=== PATIENT | female | born 1980 | race Caucasian/White ===

== ENCOUNTER 2017-07-27 00:12 | Inpatient (IN) | payer SELFPAY ==
--- NOTE | 2017-07-27 00:38 | PDOC ---
History of Present Illness - History of Present Illness Initial Comments: 07/27/17 01:53 Patient is a 37 year old female with a significant past medical history of Fibromyalgia, withdrawal seizures, who was brought by EMS to the ED with complaints of withdrawal. As per [facility] staff, patient was admitted for rehab but states she began to show signs of withdrawal, prompting them to send to the ED for further evaluation. Patient reports taking alcohol this morning as well as cocaine, but states she has not done any heroin. She reports not sleeping for x3 days. Denies chest pain, Sob. Denies nausea, vomiting. Denies contact with sick individuals, out of state travelling. Denies dysuria, hematuria, constipation, diarrhea. Denies any other symptoms. Allergies: unknown Social history: From [facility]. No smoking. Current alcohol use (4 pints per day ). Current Methadone use. Current Benzo use. Current cocaine use. Surgical history: None PMD: None <Nabil Snell - Last Filed: 07/27/17 01:53> <Briseyda Montemayor - Last Filed: 07/27/17 04:28> - General History Source: Patient Exam Limitations: No Limitations <Oralia De La Vega - Last Filed: 07/30/17 10:41> - General Stated Complaint: ALCOHOL WITHDRAWAL,4 WKS Time Seen by Provider: 07/27/17 00:37 Past History <Nabil Snell - Last Filed: 07/27/17 01:53> <Briseyda Montemayor - Last Filed: 07/27/17 04:28> <Oralia De La Vega - Last Filed: 07/30/17 10:41> - Past Medical History Allergies/Adverse Reactions: Allergies Allergy/AdvReac Type Severity Reaction Status Date / Time No Known Allergies Allergy Verified 07/27/17 05:46 Home Medications: Ambulatory Orders Amitriptyline HCl [Elavil -] 50 mg PO HS 07/28/17 Cyclobenzaprine HCl [Flexeril -] 10 mg PO BID 07/28/17 Fluoxetine HCl [Prozac -] 10 mg PO DAILY 07/28/17 Gabapentin [Neurontin] 600 mg PO QID 07/28/17 Hydroxyzine HCl 50 mg PO Q6H PRN 07/28/17 Quetiapine Fumarate [Seroquel -] 25 mg PO BID 07/28/17 Valacyclovir HCl [Valtrex] 500 mg PO BID 07/28/17 Zolpidem Tartrate [Ambien] 10 mg PO HS 07/28/17 Review of Systems - Review of Systems Able to Perform ROS?: Yes Comments:: 07/27/17 01:53 GENERAL/CONSTITUTIONAL: +Generalized body pain. No: fever, chills, weakness, loss of appetite. HEAD, EYES, EARS, NOSE AND THROAT: No: change in vision, ear pain, discharge, sore throat, throat swelling. CARDIOVASCULAR: No: chest pain, lightheadedness, palpitations, syncope RESPIRATORY: No: cough, shortness of breath, wheezing, hemoptysis, stridor. GASTROINTESTINAL: No: nausea, vomiting, abdominal cramping, diarrhea, rectal bleeding, constipation. GENITOURINARY: No: dysuria, hematuria, frequency, urgency, flank pain. MUSCULOSKELETAL: No: back pain, neck pain, joint pain, muscle swelling or pain SKIN: No: lesions, pallor, rash or easy bruising. NEUROLOGIC: No: headache, vertigo, paresthesias, weakness ENDOCRINE: No: unexplained weight gain or loss HEMATOLOGIC/LYMPHATIC: No: anemia, easy bleeding, swelling nodes <Nabil Snell - Last Filed: 07/27/17 01:53> *Physical Exam - Vital Signs Last Vital Signs Temp Pulse Resp BP Pulse Ox 96.6 F L 72 19 125/68 99 07/27/17 00:53 07/27/17 00:53 07/27/17 00:53 07/27/17 00:53 07/27/17 00:53 - Physical Exam Comments: 07/27/17 01:53 GENERAL: +Somnolent but arousable. The patient is in no acute distress. HEAD: Normal with no signs of trauma. EYES: PERRLA, EOMI, sclera anicteric, conjunctiva clear. ENT: Ears normal, nares patent, oropharynx clear without exudates. Moist mucous membranes. NECK: Normal range of motion, supple without lymphadenopathy, JVD, or masses. LUNGS: +Poor respiratory effort but clear. Breath sounds equal, clear to auscultation bilaterally. No wheezes, and no crackles. HEART:Regular rate and rhythm, normal S1 and S2 without murmur, rub or gallop. ABDOMEN: +Low abdomen distention. Soft, nontender, normoactive bowel sounds. No guarding, no rebound. EXTREMITIES: Normal range of motion, no edema. No clubbing or cyanosis. No erythema, or tenderness. NEUROLOGICAL: Cranial nerves II through XII grossly intact. Normal speech. No focal neurological deficits. MUSCULOSKELETAL: Back nontender to palpation, no CVA tenderness SKIN: +Slight left inner bicep bruising. +No external signs of trauma. Warm, Dry, normal turgor, no rashes or lesions noted. <Nabil Snell - Last Filed: 07/27/17 01:53> - Vital Signs Last Vital Signs Temp Pulse Resp BP Pulse Ox 96.6 F L 72 19 125/68 99 07/27/17 00:53 07/27/17 00:53 07/27/17 00:53 07/27/17 00:53 07/27/17 00:53 <Briseyda Montemayor - Last Filed: 07/27/17 04:28> ED Treatment Course - LABORATORY CBC & Chemistry Diagram: 07/27/17 01:52 07/27/17 01:52 - ADDITIONAL ORDERS Additional order review: Laboratory Results 07/27/17 07/27/17 01:52 01:52 Sodium 138 Potassium 3.8 Chloride 101 Carbon Dioxide 26 Anion Gap 11 BUN 11 Creatinine 0.5 L Creat Clearance w eGFR > 60 Random Glucose 84 Calcium 8.9 Total Bilirubin 0.2 AST 47 H ALT 34 Alkaline Phosphatase 68 Total Protein 7.1 Albumin 3.3 L Beta HCG, Quant 86177.2 Alcohol, Quantitative 110.38 H* 07/27/17 01:52 RBC 3.68 MCV 92.3 MCHC 33.6 RDW 14.4 MPV 7.9 Neutrophils % 61.9 Lymphocytes % 28.4 Monocytes % 7.4 Eosinophils % 1.5 Basophils % 0.8 <Briseyda Montemayor - Last Filed: 07/27/17 04:28> - LABORATORY CBC & Chemistry Diagram: 07/30/17 06:00 07/30/17 06:00 <Oralia De La Vega - Last Filed: 07/30/17 10:41> Medical Decision Making - Medical Decision Making 07/27/17 04:28 Pt was signed out to me. She is positive; polysubstance abuser. Pt is altered MS; likely secondary to substance abuse. Pt will be admitted to short stay obs; medicine team is aware. Pt will get sono in the AM <Briseyda Montemayor - Last Filed: 07/27/17 04:28> - Medical Decision Making 07/27/17 01:20 Ms Knowles presents to the ER from [facility] Per staff there, she is going through withdrawal, she was found to be and they can not accept patient Pt tells me that she was sleeping at [facility] because she has not slept in 4 days She admits to alcohol use, benzodizepine use (unsure which one she took today), cocaine She takes Methadone 150mg daily Pt reports that when she doesn't drink alcohol, she becomes tremulous Typically, she drinks 3-4 pints/day On examination: Pt is somnolent but arousable RRR, no tachycardia Lung are clear, poor respiratory effort Resp rate is 10 No abd tenderness Bruise noted left forearm Will: check labs check UA US Pt at this time does not appear to be agitated, withdrawing Pt on the contrary appears quite somnolent She will stay for observation in the ER Pt can not return to [facility] as they do not accept patients 07/27/17 01:29 Pt sent to [place] Received a call from [facility] stating patient could not be imaged because she is too somnolent She is requesting to send this patient back to the ER Labs to be drawn Pt is too somnolent at this time to discharge to home Pt signed out to Dr. Montemayor <Oralia De La Vega - Last Filed: 07/30/17 10:41> *DC/Admit/Observation/Transfer - Attestations Scribe Attestion: 07/27/17 01:53 Documentation prepared by Nabil Snell, acting as medical hospital sales for Oralia De La Vega MD. <Nabil Snell - Last Filed: 07/27/17 01:53> - Discharge Dispostion Decision to Admit order: Yes <Briseyda Montemayor - Last Filed: 07/27/17 04:28> - Discharge Dispostion Decision to Admit order: No <Oralia De La Vega - Last Filed: 07/30/17 10:41> Diagnosis at time of Disposition: Polysubstance abuse, test positive - Discharge Dispostion Condition at time of disposition: Stable
[2017-07-27 02:10] LABS: BASO % 0.8 % (0-2.0); EOS % 1.5 % (0-4.5); HEMATOCRIT 33.9 % (32.4-45.2); HEMOGLOBIN 11.4 GM/dL (10.7-15.3); LYMPH % 28.4 % (8-40); MCHC 33.6 g/dl (32.0-36.0); MEAN CELL VOLUME 92.3 fl (80-96); MEAN PLT VOLUME 7.9 fl (7.5-11.1); MONO % 7.4 % (3.8-10.2); NEUT % 61.9 % (42.8-82.8); PLATELET COUNT 268 K/MM3 (134-434); RBC 3.68 M/mm3 (3.60-5.2); RDW 14.4 % (11.6-15.6); WHITE BLOOD COUNT 9.4 K/mm3 (4.0-10.0)
[2017-07-27 02:35] LABS: ALBUMIN 3.3 g/dl (3.4-5.0); ANION GAP 11 (8-16); BILIRUBIN,TOTAL 0.2 mg/dL (0.2-1.0); BLOOD UREA NITROGEN 11 mg/dL (7-18); CALCIUM 8.9 mg/dL (8.5-10.1); CHLORIDE 101 mmol/L (98-107); CO2 26 mmol/L (21-32); CREATININE 0.5 mg/dL (0.55-1.02); GLUCOSE,RANDOM 84 mg/dL (74-106); POTASSIUM 3.8 mmol/L (3.5-5.1); SGOT/AST 47 U/L (15-37); SGPT/ALT 34 U/L (12-78); SODIUM 138 mmol/L (136-145); TOT PROT 7.1 g/dl (6.4-8.2)
[2017-07-27 02:51] LABS: ALK PHOS 68 U/L (45-117)
--- NOTE | 2017-07-27 11:15 | PDOC ---
*Physical Exam - Vital Signs Last Vital Signs Temp Pulse Resp BP Pulse Ox 96.6 F L 72 19 125/68 99 07/27/17 00:53 07/27/17 00:53 07/27/17 00:53 07/27/17 00:53 07/27/17 00:53 - Physical Exam General Appearance: Yes: Nourished Respiratory/Chest: positive: Lungs Clear, Normal Breath Sounds Cardiovascular: positive: S1, S2 (we'll), Tachycardia Gastrointestinal/Abdominal: positive: Normal Bowel Sounds, Flat, Soft Musculoskeletal: positive: Normal Inspection. negative: CVA Tenderness Extremity: positive: Normal Capillary Refill ( alcshe is a hises) Integumentary: positive: Normal Color, Dry, Warm Neurologic: positive: Fully Oriented, Alert, Normal Mood/Affect, Other ( tremulous) ED Treatment Course - LABORATORY CBC & Chemistry Diagram: 07/27/17 01:52 07/27/17 01:52 - ADDITIONAL ORDERS Additional order review: Laboratory Results 07/27/17 07/27/17 01:52 01:52 Sodium 138 Potassium 3.8 Chloride 101 Carbon Dioxide 26 Anion Gap 11 BUN 11 Creatinine 0.5 L Creat Clearance w eGFR > 60 Random Glucose 84 Calcium 8.9 Total Bilirubin 0.2 AST 47 H ALT 34 Alkaline Phosphatase 68 Total Protein 7.1 Albumin 3.3 L Beta HCG, Quant 47979.2 Alcohol, Quantitative 110.38 H* 07/27/17 01:52 RBC 3.68 MCV 92.3 MCHC 33.6 RDW 14.4 MPV 7.9 Neutrophils % 61.9 Lymphocytes % 28.4 Monocytes % 7.4 Eosinophils % 1.5 Basophils % 0.8 Medical Decision Making - Medical Decision Making 07/27/17 11:07 37 yo F with h/o polysubstance abuse, etoh abuse, here from [facility] initially requesting detox. pt is currently 9 weeks , unable to go to [facility] due to . pt states she has ho etoh withdrawal seizures. concerned she is withdrawing from both etoh and benzoiazepines. pt was admitted to ED observation overnight. awaiting evaluation. on my exam pt is awake. alert, tearful. lungs clear. heart tachycardic. skin warm and dry. pt is tearful, tremulous. due to concerns for etoh withdrawal, h/o severe withdrawal with seizures, will be admitted to medicine. d/w dr Heaton, requested consult to ob placed with Dr. Parada who will see pt . *DC/Admit/Observation/Transfer Diagnosis at time of Disposition: Polysubstance abuse, test positive - Discharge Dispostion Condition at time of disposition: Stable Decision to Admit order: Yes - Referrals - Patient Instructions - Post Discharge Activity
[2017-07-27 12:12] LABS: URINE APPEARANCE CLOUDY; URINE BILIRUBIN NEGATIVE (<2.0 mg/dL); URINE BLOOD 2+ (NEGATIVE); URINE COLOR AMBER; URINE GLUCOSE (UA) NEGATIVE (NEGATIVE); URINE KETONE TRACE (NEGATIVE); URINE NITRITE NEGATIVE (NEGATIVE); URINE UROBILINOGEN 4.0 E.U/dl mg/dL (0.2-1.0)
[2017-07-27 12:13] LABS: URINE LEUK ESTERASE 3+ (NEGATIVE); URINE PROTEIN 2+ (NEGATIVE)
[2017-07-27 12:21] LABS: EPI CELLS MODERATE /HPF (FEW); URINE BACTERIA RARE /hpf (NONE SEEN); URINE MUCUS FEW
--- NOTE | 2017-07-27 12:25 | HP ---
CHIEF COMPLAINT: Alcohol withdrawal in PCP: Dr Ortiz ([facility] in the [place]) Dr Bonilla ([facility] in the [place]) Meth[facility]one Clinic[facility] in the [place] HISTORY OF PRESENT ILLNESS: Pt is a 37 year old A (3 miscarriages, 1 , 1 term and alive-7year old F) homeless F with PMHx of polysubstance abuse(ETOH, tobacco, cocaine and heroine), fibromyalgias, withdrawal seizures and anxiety presenting, from [facility] with 9 weeks and requiring alcohol detox. Pt checked herself into detox for alcohol and cocaine (last use yesterday, up to about 11pm-midnight) because she felt she is doing damage to herself and did not want to keep harming herself with the iv cocaine injection. Pt was unaware she was , due to irregular menstrual periods, and was informed of the in [facility], requiring transfer here([facility] does not do detox in ). Pt has gone for detox in the past, said she was clean for 9 months and then relapsed. She has had severe withdrawal seizures in the past and can feel the withdrawal coming on now with tremors, dry heave, headache and anxiety. She goes to a Methadone clinic in the [place], so uses heroine sparingly, but had used iv cocaine, cigarettes and 3-4 pints of vodka a day, yesterday prior to presentation. Pt intends to keep this , and was inquiring about DNA tests. She is worried about not getting the detox due to . ER course was notable for: (1) HCG- [id number], US- (9 weeks gestation) (2) Ativan 1mg stat (3) Recent Travel: PAST MEDICAL HISTORY: polysubstance abuse(ETOH, tobacco, cocaine and heroine), fibromyalgias, withdrawal seizures and anxiety PAST SURGICAL HISTORY: Social History: Homeless, lives with friends, has a boyfriend, does not work Smokin/2 pack per day x 20years Alcohol:3-4 pints vodka per day Drugs: Cocaine-iv, heroine occ, on 150mg methadone, buys klonipin from street Family History: Mother , had MS Allergies No Known Allergies Allergy (Verified 07/27/17 05:46) HOME MEDICATIONS: Home Medications Medication Instructions Recorded Unobtainable 07/27/17 REVIEW OF SYSTEMS CONSTITUTIONAL: Absent: fever, chills, diaphoresis, generalized weakness, malaise, loss of appetite, weight change HEENT: Absent: rhinorrhea, nasal congestion, throat pain, throat swelling, difficulty swallowing, mouth swelling, ear pain, eye pain, visual changes CARDIOVASCULAR: Absent: chest pain, syncope, palpitations, irregular heart rate, lightheadedness , peripheral edema RESPIRATORY: Absent: cough, shortness of breath, dyspnea with exertion, orthopnea, wheezing, stridor, hemoptysis GASTROINTESTINAL: Absent: abdominal pain, abdominal distension, nausea, vomiting, diarrhea, constipation, melena, hematochezia GENITOURINARY: Absent: dysuria, frequency, urgency, hesitancy, hematuria, flank pain, genital pain MUSCULOSKELETAL: Absent: myalgia, arthralgia, joint swelling, back pain, neck pain SKIN: Absent: rash, itching, pallor HEMATOLOGIC/IMMUNOLOGIC: Absent: easy bleeding, easy bruising, lymphadenopathy, frequent infections ENDOCRINE: Absent: unexplained weight gain, unexplained weight loss, heat intolerance, cold intolerance NEUROLOGIC: Absent: headache, focal weakness or paresthesias, dizziness, unsteady gait, seizure, mental status changes, bladder or bowel incontinence PSYCHIATRIC: Absent: anxiety, depression, suicidal or homicidal ideation, hallucinations. PHYSICAL EXAMINATION Vital Signs - 24 hr 07/27/17 07/27/17 00:53 11:25 Temperature 96.6 F L Pulse Rate 72 Pulse Rate [ 77 Apical] Respiratory 19 18 Rate Blood Pressure 125/68 Blood Pressure 138/73 [Right Arm] O2 Sat by Pulse 99 98 Oximetry (%) GENERAL: Awake, alert, and fully oriented, anxious, and teary. HEAD: Normal with no signs of trauma. EYES: Pupils equal, round and reactive to light, extraocular movements intact, sclera anicteric, EARS, NOSE, THROAT: oropharynx clear without exudates. Moist mucous membranes. Tooth #10 broken LUNGS: Breath sounds equal, clear to auscultation bilaterally. No wheezes, and no crackles HEART: Regular rate and rhythm, normal S1 and S2 without murmur, rub or gallop. ABDOMEN: Suprapubic fullness. Soft, nontender, not distended, normoactive bowel sounds, no guarding, no rebound MUSCULOSKELETAL: Normal range of motion at all joints. No bony deformities or tenderness. No CVA tenderness. R knee healing bruise UPPER EXTREMITIES: 2+ pulses, warm, well-perfused. LOWER EXTREMITIES: 2+ pulses, warm, well-perfused. No calf tenderness. No peripheral edema. Onychomycosis bilaterally NEUROLOGICAL: AAOx3. Tremors of outstretched hands. Normal speech. PSYCHIATRIC: Anxious SKIN: Diaphoresis of forehead. Laboratory Results - last 24 hr 07/27/17 07/27/17 07/27/17 01:52 01:52 01:52 WBC 9.4 RBC 3.68 Hgb 11.4 Hct 33.9 MCV 92.3 MCH 31.0 MCHC 33.6 RDW 14.4 Plt Count 268 MPV 7.9 Neutrophils % 61.9 Lymphocytes % 28.4 Monocytes % 7.4 Eosinophils % 1.5 Basophils % 0.8 Nucleated RBC % 0 Sodium 138 Potassium 3.8 Chloride 101 Carbon Dioxide 26 Anion Gap 11 BUN 11 Creatinine 0.5 L Creat Clearance w eGFR > 60 Random Glucose 84 Calcium 8.9 Total Bilirubin 0.2 AST 47 H ALT 34 Alkaline Phosphatase 68 Total Protein 7.1 Albumin 3.3 L Beta HCG, Quant 51649.2 Alcohol, Quantitative 110.38 H* ASSESSMENT/PLAN: Pt is a 37 year old A homeless F with PMHx of polysubstance abuse(ETOH, tobacco, cocaine and heroine), fibromyalgias, withdrawal seizures and anxiety presenting, from [facility] with 9 weeks and requiring alcohol detox. # ETOH withdrawal CIWA-15 Has had DTs in past Admit Medsurg Consult- detox- Dr Sheppard Thiamine Banana bag vits Mg Phosh # Obgyn consult monitoring vits #Heroine/ Cocaine abuse On methadone program Will try to contact the clinic #fibromayalgias Will med rec her #anxiety Will be on benzos for ETOH withdrawal pending med recs #FEN Banana bag/Oral ingestion Monitor lytes and replete as needed Regular diet #Heparin SQ heparin 5000u tids #Dispo: Med Surg Obgyn consult Visit type - Emergency Visit Emergency Visit: Yes ED Registration Date: 07/27/17 Care time: The patient presented to the Emergency Department on the above date and was hospitalized for further evaluation of their emergent condition. - New Patient This patient is new to me today: Yes Date on this admission: 07/27/17 - Critical Care Critical Care patient: No Hospitalist Screening - Colonoscopy Questionnaire Colonoscopy Questionnaire: Colonoscopy Questionnaire - Patient: 50 - 75 years old and never had a screening colonoscopy: No History of colon or rectal polyps, or CA: Unknown History of IBD, Crohn's disease or UC: Unknown History of abdominal radiation therapy as a child: Unknown - Relative: 1 with colon or rectal CA, or polyps at age 60 or younger: Unknown Colon or rectal CA diagnosed at age 45 or younger: Unknown Multiple relatives with colon or rectal CA: Unknown - Outcome: Screening Result: Negative Screen
[2017-07-27 12:27] LABS: OPIATES, URI NEGATIVE ng/ml (CUTOFF=300); PHENCYCLIDINE,URINE NEGATIVE ng/ml (CUTOFF=25); URINE AMPHETAMINES NEGATIVE ng/ml (CUTOFF=500); URINE BARBITURATES NEGATIVE ng/ml (CUTOFF=200)
[2017-07-27 12:28] LABS: COCAINE, UR POSITIVE ng/ml (CUTOFF=300); METHADONE, UR POSITIVE ng/ml (CUTOFF=300); URINE BENZODIAZEPINES POSITIVE ng/ml (CUTOFF=200)
[2017-07-27] MEDS ORDERED: FOLIC ACID INJECTION - 1 MG, THIAMINE HCL 100 MG, MULTIVIT INJECTION ADULT 10 ML in SOD... IVPB ONE (12:33)
[2017-07-27] MEDS ORDERED: LORazepam 2 MG/ML SDV VIAL ONE (13:03)
[2017-07-27 13:14] LABS: MAGNESIUM 2.1 mg/dL (1.8-2.4); PHOSPHOROUS 4.2 mg/dL (2.5-4.9)
[2017-07-27] MEDS ORDERED: chlordiazePOXIDE HCL 25 MG CAPSULE PO SCH (14:44)
--- NOTE | 2017-07-27 14:47 | PN ---
Teaching Attending Note Name of Resident: Elke Davis ATTENDING PHYSICIAN STATEMENT I saw and evaluated the patient. I reviewed the resident's note and discussed the case with the resident. I agree with the resident's findings and plan as documented. SUBJECTIVE:37yo F wt PMH continuous polysubstance abuse with hx of withdrawal seizures, fibromyalgia and anxiety was sent to the ER when she arrived there for ETOH and cocaine detox and found to have + test. currently pt is c/ o anxiety, nausea and dry heaving. also has a MAKI. denies CP, SOB, fever, chills , V/C/D, auditory/visual hallucinations been getting methadone for heroin use from the clinic in the [place] 150mg. took her dose herself today as she was given her dose. OBJECTIVE: Last Vital Signs Temp Pulse Resp BP Pulse Ox 97.9 F 68 18 119/66 99 07/27/17 14:26 07/27/17 14:26 07/27/17 14:26 07/27/17 14:26 07/27/17 13:16 General lethargic Lungs CTA B/L no wheezing/rales/rhonchi CV S1 S2 RRR no murmur/rub/gallop ABdomen soft NT/ND Extremities +tremors ASSESSMENT AND PLAN: 37yo F [facility] continuous polysubstance abuse with hx of withdrawal seizures, fibromyalgia and anxiety presented to the ER after injecting cocaine adn desire to not use anymore 1. Acute ETOH withdrawal- CIWA 10 will start librium protocol. banana bag. counseled on risks assoc with current drinking which is increased during . start thiamine/folate/MVI. is interested in inpatient rehab. detox specialist consulted 2. +9 weeks liver intrauterine gestation-confirmed on TVUS. desires to keep the fetus. will start vitamins. OB evaluation for initiation of management. ensure all medications are safe in 3. UTI- start Ceftriaxone. will treat although asymptomatic in setting of . f/u Cx 4. continuous polysusbtance abuse- counselled on risks assoc with continued use to her and the baby. detox specialist consulted. will wait on his recommendation on methadone dosing. will likely require to be detoxed. states she takes 150mg which needs to be confirmed. Nicotine patch offered 5. Fibromyalgia- symptomatic treatment 6. DVT ppx- hep sq
[2017-07-27] MEDS ORDERED: DEXTROSE 5%-WATER 100 ML IVPB ONE (15:35)
[2017-07-27] MEDS: CEFTRIAXONE 2 GM in DEXTROSE 5%-WATER 100 ML IVPB SCH (15:55)
[2017-07-27] MEDS: chlordiazePOXIDE HCL 25 MG CAPSULE PO SCH ×2 (15:56→22:02)
[2017-07-27] MEDS: SODIUM CHLORIDE 1,000 ML IV SCH (15:56)
[2017-07-27] MEDS: HEPARIN NA (PORCINE) 5,000 UNITS/ML 1ML VIAL SQ SCH ×2 (15:57→22:02)
[2017-07-27] MEDS: NICOTINE 21 MG/24 HOURS TOPICAL PATCH TD SCH (15:58)
[2017-07-27] MEDS: METOCLOPRAMIDE HCL INJECTION 10 MG/2 ML VIAL IVPUSH PRN (17:11)
--- NOTE | 2017-07-27 17:40 | CONSULT ---
Consult Detox [facility] Reason for Current Admission/Consult: 37 y/o female pt with h/o chronic alcoholism who presented to ED in [facility]. requiring admission for alcohol detox with [facility]. - History History of Present Illness: Female pt with h/o polysubstance use . Presently on Julio C Jordan ,OTP [place] [facility] receiving 150mg/d . Pt has h/o chronic alcoholism drinking about 4 pt.s of vodka /day and using cocaine approx. $60./day. Pt presented to [facility] for detox and was transfered to [facility]. Pt found to be , in withdrawal and with UTI. PMHX: h/o fibromyalgaia , withdrawal sz's , anxiety , depression , bipolar d/o - History Source History Provided By: Patient Limitations to Obtaining History: No Limitations - Alcohol/Substance Use Hx Alcohol Use: Yes (vodka 4 pt.s /d ) Hx Substance Use: Yes (cocaine $60./d ) Hx Substance Use Treatment: Yes (benzodiazepines ) - Current Drug/Alcohol Use Alcohol Route: Oral Frequency: Daily Amount used: vodka 4 pt.s /d Age of first use: 12 Date of Last Use: 07/26/17 Cocaine Route: Injection Frequency: Daily Amount used: $60./d Age of first use: 18 Date of Last Use: 07/26/17 - Past Medical History [employer]WORK EXPERT: Yes: Seizure (alcohol withdrawal sz's - last 11 months ago . ) Renal/: Yes: UTI Reproductive: Yes: Other (IUP ) ...: Yes Psych: Yes: Addictions (opioid dep., chronic alcoholism, benzo dep., nicotine dep. ), Anxiety, Bipolar, Depression Rheumatology: Yes: Fibromyalgia - Past Surgical History Past Surgical History: Yes: None - Significant Medical Findings: Vital Signs Temperature 98.4 F 07/27/17 17:36 Pulse Rate 72 07/27/17 17:36 Respiratory Rate 18 07/27/17 17:36 Blood Pressure 133/66 07/27/17 17:36 O2 Sat by Pulse Oximetry (%) 99 07/27/17 17:30 Laboratory Tests 07/27/17 07/27/17 07/27/17 01:52 01:52 01:52 WBC 9.4 RBC 3.68 Hgb 11.4 Hct 33.9 MCV 92.3 MCH 31.0 MCHC 33.6 RDW 14.4 Plt Count 268 MPV 7.9 Neutrophils % 61.9 Lymphocytes % 28.4 Monocytes % 7.4 Eosinophils % 1.5 Basophils % 0.8 Nucleated RBC % 0 Sodium 138 Potassium 3.8 Chloride 101 Carbon Dioxide 26 Anion Gap 11 BUN 11 Creatinine 0.5 L Creat Clearance w eGFR > 60 Random Glucose 84 Calcium 8.9 Phosphorus 4.2 Magnesium 2.1 Total Bilirubin 0.2 AST 47 H ALT 34 Alkaline Phosphatase 68 Total Protein 7.1 Albumin 3.3 L Beta HCG, Quant 54306.2 Urine Color Urine Appearance Urine pH Ur Specific [place] Urine Protein Urine Glucose (UA) Urine Ketones Urine Blood Urine Nitrite Urine Bilirubin Urine Urobilinogen Ur Leukocyte Esterase Urine WBC (Auto) Urine RBC (Auto) Ur Epithelial Cells Urine Bacteria Urine Mucus Opiates Screen Methadone Screen Barbiturate Screen Phencyclidine Screen Ur Amphetamines Screen MDMA (Ecstasy) Screen Benzodiazepines Screen Cocaine Screen U Marijuana (THC) Screen Alcohol, Quantitative 110.38 H* 07/27/17 07/27/17 07:21 12:00 WBC RBC Hgb Hct MCV MCH MCHC RDW Plt Count MPV Neutrophils % Lymphocytes % Monocytes % Eosinophils % Basophils % Nucleated RBC % Sodium Potassium Chloride Carbon Dioxide Anion Gap BUN Creatinine Creat Clearance w eGFR Random Glucose Calcium Phosphorus Magnesium Total Bilirubin AST ALT Alkaline Phosphatase Total Protein Albumin Beta HCG, Quant Urine Color Allison Urine Appearance Cloudy Urine pH 6.0 Ur Specific [place] 1.020 Urine Protein 2+ H Urine Glucose (UA) Negative Urine Ketones Trace H Urine Blood 2+ H Urine Nitrite Negative Urine Bilirubin Negative Urine Urobilinogen 4.0 e.u/dl H Ur Leukocyte Esterase 3+ H Urine WBC (Auto) 287 Urine RBC (Auto) 14 Ur Epithelial Cells Moderate Urine Bacteria Rare Urine Mucus Few Opiates Screen Negative Methadone Screen Positive Barbiturate Screen Negative Phencyclidine Screen Negative Ur Amphetamines Screen Negative MDMA (Ecstasy) Screen Negative Benzodiazepines Screen Positive Cocaine Screen Positive U Marijuana (THC) Screen Negative Alcohol, Quantitative 37 y/o f. pt. AOX3 , ambulating to bed appearing tired with running IV skin moist miosis no nystagmus + tremors no hallucinations CIWA Score - CIWA Score Nausea/Vomitin Muscle Tremors: 2 Anxiety: 2 Agitation: 1-Slight > Activity Paroxysmal Sweats: 1-Minimal Palms Moist Orientation: 0-Oriented Tacttile Disturbances: 1-Very Mild Itch/Numbness Auditory Disturbances: 0-None Visual Disturbances: 0-None Headache: 2-Mild CIWA-Ar Total Score: 11 Assessment Plan - Diagnosis (1) test positive Status: Acute (2) Polysubstance abuse Status: Chronic (3) Chronic alcoholism Status: Chronic (4) Methadone maintenance therapy patient Status: Chronic (5) Cocaine dependence Status: Chronic Qualifiers: Substance use status: uncomplicated Qualified Code(s): F14.20 - Cocaine dependence, uncomplicated (6) Benzodiazepine abuse Status: Acute (7) Nicotine dependence Status: Chronic Qualifiers: Nicotine product type: cigarettes Substance use status: uncomplicated Qualified Code(s): F17.210 - Nicotine dependence, cigarettes, uncomplicated - Plan Plan: Pt strongly encouraged to attend in Pt /rehab / long-term treatment program to address polysubstance use . - Medication Detox Regimen/Protocol: Librium (cont inue present alcohol detox with librium protocol. )
[2017-07-27 17:44] VITALS: BMI 28.0
[2017-07-27] MEDS: chlordiazePOXIDE HCL 25 MG CAPSULE PO PRN (19:44)
--- NOTE | 2017-07-27 21:40 | CON.OBG ---
Consult Consult Specialty:: OB / GAS OPERATIONS SUPERINTENDENT Reason for Consultation:: Positive - History of Present Illness History of Present Illness: 37 yo Para 1 with h/o irregular menses, LMP unknown, presents to ER for detoxification. She was found to have a 9 weeks gestation by ultrasound. is desired. She admits to polysubstance abuse; she's a heavy alcohol drinker and has been on methadone. She states that she was on methadone with her first . 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 ) Renal/: Yes: UTI ...LMP: 05/03/17 ...: Yes ...Para: 1 Psych: Yes: Addictions (opioid dep., chronic alcoholism, benzo dep., nicotine dep. ), Anxiety, Bipolar, Depression Rheumatology: Yes: Fibromyalgia - Past Surgical History Past Surgical History: Yes: None - Alcohol/Substance Use Hx Alcohol Use: Yes (vodka 4 pt.s /d ) - Smoking History Smoking history: Current every day smoker Have you smoked in the past 12 months: Yes Aproximately how many cigarettes per day: 10 - Social History Usual Living Arrangement: Other (Homeless) History of Recent Travel: No Home Medications - Allergies Allergies/Adverse Reactions: Allergies Allergy/AdvReac Type Severity Reaction Status Date / Time No Known Allergies Allergy Verified 07/27/17 05:46 - Home Medications Home Medications: Ambulatory Orders Unobtainable 07/27/17 Family Disease History - Family Disease History Family History: Unremarkable Review of Systems - Review of Systems Constitutional: reports: Weakness Eyes: reports: No Symptoms HENT: reports: No Symptoms Neck: reports: No Symptoms Cardiovascular: reports: No Symptoms Respiratory: reports: No Symptoms Gastrointestinal: reports: No Symptoms Genitourinary: reports: No Symptoms Breasts: reports: No Symptoms Reported Integumentary: reports: No Symptoms Endocrine: reports: No Symptoms Hematology/Lymphatic: reports: No Symptoms Psychiatric: reports: Anxiety, Depression Pain Intensity: 0 Physical Exam-GAS OPERATIONS SUPERINTENDENT Vital Signs: Vital Signs Temperature 98.5 F 07/27/17 18:57 Pulse Rate 51 L 07/27/17 18:57 Respiratory Rate 18 07/27/17 18:57 Blood Pressure 126/78 07/27/17 18:57 O2 Sat by Pulse Oximetry (%) 99 07/27/17 17:30 Constitutional: Yes: Poor Hygeine HENT: Yes: Atraumatic Neck: Yes: Supple Cardiovascular: Yes: Regular Rate and Rhythm Respiratory: Yes: Regular Gastrointestinal: Yes: Normal Bowel Sounds External Genitalia: Yes: Normal Vaginal Exam: Yes: Normal Cervix: Yes: Normal Uterus: Yes: Freely Moveable Breast(s): Yes: WNL Musculoskeletal: Yes: WNL Extremities: Yes: WNL Integumentary: Yes: WNL Neurological: Yes: Alert, Oriented ...Motor Strength: WNL Psychiatric: Yes: Alert, Oriented Labs: CBC, BMP 07/27/17 01:52 07/27/17 01:52 Assessment/Plan Early gestation Depression Fibromyalgia Substance abuse Continue vitamins Patient may continue her detoxification and be followed for care as outpatient.
[2017-07-28] MEDS: chlordiazePOXIDE HCL 25 MG CAPSULE PO SCH ×4 (05:26→22:51)
[2017-07-28] MEDS: METOCLOPRAMIDE HCL INJECTION 10 MG/2 ML VIAL IVPUSH PRN ×2 (05:51→18:29)
[2017-07-28] MEDS: HEPARIN NA (PORCINE) 5,000 UNITS/ML 1ML VIAL SQ SCH ×3 (05:52→21:36)
[2017-07-28] MEDS ORDERED: METHADONE HCL 10 MG TABLET PO ONE (08:07)
--- NOTE | 2017-07-28 08:23 | PN ---
Physical Exam: SUBJECTIVE: Patient seen and examined. Startes treated for UTI and librium taper. No vomiting overnight. Tremors are improved. OBJECTIVE: Vital Signs Period Temp Pulse Resp BP Sys/Valdez Pulse Ox Last 24 Hr 97.9 F-98.7 F 51-77 18-20 119-159/66-100 98-99 Vital Signs Temp 98.2 F 07/28/17 15:03 Pulse 58 L 07/28/17 15:03 Resp 17 07/28/17 15:03 BP 111/63 07/28/17 15:03 Pulse Ox 100 07/28/17 09:00 Intake & Output 07/27/17 07/28/17 07/28/17 23:59 11:59 23:59 Intake Total 1200 900 720 Balance 1200 900 720 Weight 71.894 kg Intake: IV 600 500 Normal Saline - 1,000 ml 600 500 @ 100 mls/hr IV ASDIR PARISA Rx#:[id number] Oral 600 400 720 Other: Voiding Method Toilet Toilet Toilet # Unmeasured Voids Void 1 Bowel Movement No No No Height 1.6 m Body Mass Index (BMI) 28.0 Weight Measurement Method Built in [facility] GENERAL: The patient is awake, alert, and fully oriented, in no acute distress, no obvious diaphoresis. LUNGS: Breath sounds equal, clear to auscultation bilaterally HEART: Regular rate and rhythm, S1, S2 without murmur ABDOMEN: Soft, mildly tender suprapubic region,full suprapubic area, normoactive bowel sounds EXTREMITIES: 2+ pulses, warm, well-perfused, no edema. NEUROLOGICAL: AAO x3. Normal speech, gait not observed. CIWA score 10 CBC, BMP 07/28/17 08:25 07/28/17 08:25 Laboratory Results - last 24 hr 07/27/17 07/27/17 07/27/17 01:52 07:21 12:00 Sodium 138 Potassium 3.8 Chloride 101 Carbon Dioxide 26 Anion Gap 11 BUN 11 Creatinine 0.5 L Creat Clearance w eGFR > 60 Random Glucose 84 Calcium 8.9 Phosphorus 4.2 Magnesium 2.1 Total Bilirubin 0.2 AST 47 H ALT 34 Alkaline Phosphatase 68 Total Protein 7.1 Albumin 3.3 L Beta HCG, Quant 58696.2 Urine Color Allison Urine Appearance Cloudy Urine pH 6.0 Ur Specific [place] 1.020 Urine Protein 2+ H Urine Glucose (UA) Negative Urine Ketones Trace H Urine Blood 2+ H Urine Nitrite Negative Urine Bilirubin Negative Urine Urobilinogen 4.0 e.u/dl H Ur Leukocyte Esterase 3+ H Urine WBC (Auto) 287 Urine RBC (Auto) 14 Ur Epithelial Cells Moderate Urine Bacteria Rare Urine Mucus Few Opiates Screen Negative Methadone Screen Positive Barbiturate Screen Negative Phencyclidine Screen Negative Ur Amphetamines Screen Negative MDMA (Ecstasy) Screen Negative Benzodiazepines Screen Positive Cocaine Screen Positive U Marijuana (THC) Screen Negative Active Medications Generic Name Dose Route Start Last Admin Trade Name Freq PRN Reason Stop Dose Admin Chlordiazepoxide HCl 25 mg 07/28/17 17:00 Librium - PO 07/29/17 11:01 [id number] PARISA Chlordiazepoxide HCl 15 mg 07/29/17 17:00 Librium - PO 07/30/17 11:01 [id number] PARISA Chlordiazepoxide HCl 25 mg 07/27/17 14:44 07/27/17 19:44 Librium - PO 07/30/17 14:43 25 mg Q4H PRN Administration WITHDRAWAL(CONT SUBST) Chlordiazepoxide HCl 50 mg 07/27/17 15:30 07/28/17 05:26 Librium - PO 07/28/17 11:01 50 mg [id number] PARISA Administration Heparin Sodium (Porcine) 5,000 unit 07/27/17 14:00 07/28/17 05:52 Heparin - SQ 5,000 unit TID PARISA Administration Ceftriaxone Sodium 2 gm/ 100 mls @ 200 mls/hr 07/27/17 14:15 07/27/17 15:55 Dextrose IVPB 200 mls/hr DAILY PARISA Administration Protocol Sodium Chloride 1,000 mls @ 100 mls/hr 07/27/17 15:30 07/27/17 15:56 Normal Saline - IV Not Given ASDIR [facility] Methadone HCl 150 mg 07/28/17 08:07 Dolophine - PO 07/28/17 08:08 ONCE ONE Metoclopramide HCl 10 mg 07/27/17 15:21 07/28/17 05:51 Reglan Injection - IVPUSH 10 mg Q6H PRN Administration NAUSEA AND/OR VOMITING Nicotine 21 mg 07/27/17 15:15 07/27/17 15:58 Nicoderm Patch - TD 21 mg DAILY [facility] Administration Multivit/Folic Acid/Iron 1 tab 07/28/17 10:00 Vitamins (Sjr) - PO DAILY [facility] Thiamine HCl 100 mg 07/28/17 10:00 Vitamin B1 - PO DAILY [facility] Ambulatory Orders Amitriptyline HCl [Elavil -] 50 mg PO HS 07/28/17 Cyclobenzaprine HCl [Flexeril -] 10 mg PO BID 07/28/17 Fluoxetine HCl [Prozac -] 10 mg PO DAILY 07/28/17 Gabapentin [Neurontin] 600 mg PO QID 07/28/17 Hydroxyzine HCl 50 mg PO Q6H PRN 07/28/17 Quetiapine Fumarate [Seroquel -] 25 mg PO BID 07/28/17 Valacyclovir HCl [Valtrex] 500 mg PO BID 07/28/17 Zolpidem Tartrate [Ambien] 10 mg PO HS 07/28/17 Current Medications Acetaminophen (Tylenol -) 650 mg PO Q4H PRN PRN Reason: PAIN LEVEL 1-5 Last Admin: 07/28/17 11:41 Dose: 650 mg Chlordiazepoxide HCl (Librium -) 15 mg PO [id number] [facility] Stop: 07/30/17 11:01 Chlordiazepoxide HCl (Librium -) 25 mg PO Q4H PRN PRN Reason: WITHDRAWAL(CONT SUBST) Stop: 07/30/17 14:43 Last Admin: 07/28/17 13:50 Dose: 25 mg Chlordiazepoxide HCl (Librium -) 50 mg PO [id number] [facility] Stop: 07/29/17 11:01 Heparin Sodium (Porcine) (Heparin -) 5,000 unit SQ TID [facility] Last Admin: 07/28/17 13:51 Dose: 5,000 unit Ceftriaxone Sodium 2 gm/ (Dextrose) 100 mls @ 200 mls/hr IVPB DAILY [facility]; Protocol Last Admin: 07/28/17 10:08 Dose: 200 mls/hr Sodium Chloride (Normal Saline -) 1,000 mls @ 100 mls/hr IV ASDIR [facility] Last Admin: 07/28/17 13:49 Dose: 100 mls/hr Metoclopramide HCl (Reglan Injection -) 10 mg IVPUSH Q6H PRN PRN Reason: NAUSEA AND/OR VOMITING Last Admin: 07/28/17 05:51 Dose: 10 mg Nicotine (Nicoderm Patch -) 21 mg TD DAILY [facility] Last Admin: 07/28/17 10:08 Dose: 21 mg Multivit/Folic Acid/Iron ( Vitamins (Sjr) -) 1 tab PO DAILY [facility] Last Admin: 07/28/17 10:08 Dose: 1 tab Thiamine HCl (Vitamin B1 -) 100 mg PO DAILY [facility] Last Admin: 07/28/17 10:09 Dose: 100 mg ASSESSMENT/PLAN: Pt is a 37 year old A homeless F with PMHx of polysubstance abuse(ETOH, tobacco, cocaine and heroine), fibromyalgias, withdrawal seizures and anxiety presenting, from [facility] with 9 weeks and requiring alcohol detox. # ETOH withdrawal CIWA-10 Has had DTs in past On librium protocol restarted -on 50mg could be reviewed down to 25mg. Thiamine Banana bag vits Mg Phosh # UTI Positive UA in Suprapubic tenderness Cont ceftriaxone 2g # Obgyn consult- confirm her meds and discuss with obgyn, waiting to hear back monitoring vits #Heroine/ Cocaine abuse On methadone program Waiting to hear back from the clinic #fibromayalgias Pending her med rec - waiting for response #anxiety Will be on benzos for ETOH withdrawal pending med recs #FEN iv fluids Monitor lytes and replete as needed Regular diet #Dispo Cont detox and UTI treatment Med surg Visit type - Emergency Visit Emergency Visit: Yes ED Registration Date: 07/27/17 Care time: The patient presented to the Emergency Department on the above date and was hospitalized for further evaluation of their emergent condition. - New Patient This patient is new to me today: No - Critical Care Critical Care patient: No - Discharge Referral Referred to [facility] No
[2017-07-28] MEDS ORDERED: METHADONE HCL 10 MG TABLET ONE (08:44)
[2017-07-28] MEDS ORDERED: METHADONE HCL 40 MG DISPERSABLE TABLET ONE (08:45)
[2017-07-28 08:50] LABS: BASO % 0.4 % (0-2.0); EOS % 1.2 % (0-4.5); LYMPH % 25.2 % (8-40); MCHC 34.5 g/dl (32.0-36.0); MEAN CELL VOLUME 92.8 fl (80-96); MEAN PLT VOLUME 8.4 fl (7.5-11.1); MONO % 7.2 % (3.8-10.2); PLATELET COUNT 241 K/MM3 (134-434); RBC 3.45 M/mm3 (3.60-5.2); RDW 14.1 % (11.6-15.6); WHITE BLOOD COUNT 7.2 K/mm3 (4.0-10.0)
[2017-07-28] MEDS ORDERED: METHADONE 120 MG, METHADONE 30 MG PO ONE (09:00)
[2017-07-28 09:11] LABS: CALCIUM 8.4 mg/dL (8.5-10.1); CHLORIDE 105 mmol/L (98-107); POTASSIUM 4.1 mmol/L (3.5-5.1); SODIUM 139 mmol/L (136-145)
[2017-07-28 09:17] LABS: ALBUMIN 3.1 g/dl (3.4-5.0); ALK PHOS 61 U/L (45-117); ANION GAP 7 (8-16); BILIRUBIN,TOTAL 0.4 mg/dL (0.2-1.0); BLOOD UREA NITROGEN 10 mg/dL (7-18); CO2 27 mmol/L (21-32); CREATININE 0.5 mg/dL (0.55-1.02); GLUCOSE,RANDOM 85 mg/dL (74-106); MAGNESIUM 1.8 mg/dL (1.8-2.4); SGOT/AST 30 U/L (15-37); SGPT/ALT 28 U/L (12-78); TOT PROT 6.4 g/dl (6.4-8.2)
[2017-07-28] MEDS ORDERED: DEXTROSE 5%-WATER 100 ML IVPB ONE (10:05)
[2017-07-28] MEDS: PRENATAL VITAMINS W/ FOLIC ACID TABLET (FP) PO SCH (10:08)
[2017-07-28] MEDS: CEFTRIAXONE 2 GM in DEXTROSE 5%-WATER 100 ML IVPB SCH (10:08)
[2017-07-28] MEDS: NICOTINE 21 MG/24 HOURS TOPICAL PATCH TD SCH (10:08)
[2017-07-28] MEDS: THIAMINE HCL 100 MG TABLET (FP) PO SCH (10:09)
[2017-07-28] MEDS: ACETAMINOPHEN 325 MG TABLET (FP) PO PRN ×3 (11:41→22:53)
[2017-07-28] MEDS: SODIUM CHLORIDE 1,000 ML IV SCH ×2 (13:49→16:16)
[2017-07-28] MEDS: chlordiazePOXIDE HCL 25 MG CAPSULE PO PRN ×2 (13:50→20:00)
[2017-07-28] MEDS ORDERED: chlordiazePOXIDE HCL 25 MG CAPSULE PO SCH (17:00)
--- NOTE | 2017-07-28 17:01 | PN ---
Teaching Attending Note Name of Resident: Elke Davis ATTENDING PHYSICIAN STATEMENT I saw and evaluated the patient. I reviewed the resident's note and discussed the case with the resident. I agree with the resident's findings and plan as documented. SUBJECTIVE:c/o agitation, tremors, nausea, dry heaving. denies CP, SOB, fever, chills, auditory/visual hallucinations OBJECTIVE: Last Vital Signs Temp Pulse Resp BP Pulse Ox 98.2 F 58 L 17 111/63 100 07/28/17 15:03 07/28/17 15:03 07/28/17 15:03 07/28/17 15:03 07/28/17 09:00 General agitated Lungs CTA B/L no wheezing/rales/rhonchi CV S1 S2 RRR no murmur/rub/gallop ABdomen soft NT/ND Extremities +tremors ASSESSMENT AND PLAN: 37yo F wtih PMH continuous polysubstance abuse with hx of withdrawal seizures, fibromyalgia and anxiety presented to the ER after injecting cocaine adn desire to not use anymore 1. Acute ETOH withdrawal- CIWA 15 requring extra doses of librium and still actively withdrawing. will prolong 50mg dose for an additional 4 dose and re- assess tomorrow. on thiamine/folate/MVI. is interested in inpatient rehab. spoke with detox specialist 2. +9 weeks liver intrauterine gestation-confirmed on TVUS. desires to keep the fetus. cont vitamins. OB to f/u with care. ensure all medications are safe in 3. UTI- ceftriaxone day 2. f/u Cx 4. continuous polysusbtance abuse- methadone 150mg. dose confirmed. Nicotine patch 5. Fibromyalgia- will need to confirm with OB that is safe to give multiple medications. 6. Genital herpes- on valcyclovir 7. DVT ppx- hep sq
[2017-07-29] MEDS: SODIUM CHLORIDE 1,000 ML IV SCH ×2 (01:03→13:46)
[2017-07-29] MEDS: ACETAMINOPHEN 325 MG TABLET (FP) PO PRN ×2 (05:11→20:41)
[2017-07-29] MEDS: chlordiazePOXIDE HCL 25 MG CAPSULE PO SCH ×4 (05:11→17:23)
[2017-07-29] MEDS: HEPARIN NA (PORCINE) 5,000 UNITS/ML 1ML VIAL SQ SCH ×3 (05:13→21:05)
[2017-07-29] MEDS ORDERED: METHADONE HCL 40 MG DISPERSABLE TABLET ONE (05:25)
[2017-07-29] MEDS ORDERED: METHADONE HCL 10 MG TABLET ONE (05:25)
[2017-07-29] MEDS: METHADONE 120 MG, METHADONE 30 MG PO SCH (05:40)
[2017-07-29] MEDS ORDERED: METHADONE HCL 10 MG TABLET PO SCH (06:00)
--- NOTE | 2017-07-29 08:00 | PN ---
Physical Exam: SUBJECTIVE: Patient seen and examined. Still c/o of nausea with dry heaves and headache. Is tolerating food. Received 150mg methadone this am. On librium 50mg x 4 doses. To reduce fluid with adequate PO intake. OBJECTIVE: Vital Signs Period Temp Pulse Resp BP Sys/[place]dez Pulse Ox Last 24 Hr 98.2 F-99.0 F 58-90 17-20 111-139/63-76 99-100 Vital Signs Temp 98.4 F 07/29/17 17:00 Pulse 66 07/29/17 17:00 Resp 20 07/29/17 17:00 BP 117/55 07/29/17 17:00 Pulse Ox 99 07/29/17 09:00 Intake & Output 07/28/17 07/29/17 07/29/17 23:59 11:59 23:59 Intake Total 2420 1750 220 Balance 2420 1750 220 Intake: IV 1000 1200 Normal Saline - 1,000 ml 1000 1200 @ 100 mls/hr IV ASDIR PARISA Rx#:[id number] IVPB 100 100 Oral 1320 450 220 Other: Voiding Method Toilet Toilet # Unmeasured Voids Void 2 1 10 Bowel Movement Yes No Yes # Bowel Movements 1 GENERAL: The patient is awake, alert, and fully oriented, in no acute distress. No obvious diaphoresis LUNGS: Breath sounds equal, clear to auscultation bilaterally HEART: Regular rate and rhythm, S1, S2 without murmur ABDOMEN: Soft, non tender suprapubic area, nondistended, normoactive bowel sounds EXTREMITIES: 2+ pulses, warm, well-perfused, no edema. NEUROLOGICAL: Tremors on outstretched hands. Normal speech, normal gait , Able to do serial additions. Siting still in bed CIIN-8 Laboratory Results - last 24 hr 07/28/17 07/28/17 08:25 08:25 WBC 7.2 RBC 3.45 L Hgb 11.0 Hct 32.0 L MCV 92.8 MCH 32.0 MCHC 34.5 RDW 14.1 Plt Count 241 MPV 8.4 Neutrophils % 66.0 Lymphocytes % 25.2 Monocytes % 7.2 Eosinophils % 1.2 Basophils % 0.4 Nucleated RBC % 0 Sodium 139 Potassium 4.1 Chloride 105 Carbon Dioxide 27 Anion Gap 7 L BUN 10 Creatinine 0.5 L Creat Clearance w eGFR > 60 Random Glucose 85 Calcium 8.4 L Magnesium 1.8 Total Bilirubin 0.4 D AST 30 ALT 28 Alkaline Phosphatase 61 Total Protein 6.4 Albumin 3.1 L Active Medications Generic Name Dose Route Start Last Admin Trade Name Freq PRN Reason Stop Dose Admin Acetaminophen 650 mg 07/28/17 10:21 07/29/17 05:11 Tylenol - PO 650 mg Q4H PRN Administration PAIN LEVEL 1-5 Chlordiazepoxide HCl 25 mg 07/27/17 14:44 07/28/17 20:00 Librium - PO 07/30/17 14:43 25 mg Q4H PRN Administration WITHDRAWAL(CONT SUBST) Chlordiazepoxide HCl 50 mg 07/28/17 17:00 07/29/17 05:11 Librium - PO 07/29/17 11:01 50 mg [id number] PARISA Administration Heparin Sodium (Porcine) 5,000 unit 07/27/17 14:00 07/29/17 05:13 Heparin - SQ 5,000 unit TID PARISA Administration Ceftriaxone Sodium 2 gm/ 100 mls @ 200 mls/hr 07/27/17 14:15 07/28/17 10:08 Dextrose IVPB 200 mls/hr DAILY PARISA Administration Protocol Sodium Chloride 1,000 mls @ 100 mls/hr 07/27/17 15:30 07/29/17 01:03 Normal Saline - IV 100 mls/hr ASDIR PARISA Administration Methadone HCl 120 mg/ 150 mg 07/29/17 06:00 07/29/17 05:40 Methadone HCl 30 mg PO 150 mg DAILY@0600 PARISA Administration Metoclopramide HCl 10 mg 07/27/17 15:21 07/28/17 18:29 Reglan Injection - IVPUSH 10 mg Q6H PRN Administration NAUSEA AND/OR VOMITING Nicotine 21 mg 07/27/17 15:15 07/28/17 10:08 Nicoderm Patch - TD 21 mg DAILY PARISA Administration Multivit/Folic Acid/Iron 1 tab 07/28/17 10:00 07/28/17 10:08 Vitamins (Sjr) - PO 1 tab DAILY PARISA Administration Thiamine HCl 100 mg 07/28/17 10:00 07/28/17 10:09 Vitamin B1 - PO 100 mg DAILY PARISA Administration ASSESSMENT/PLAN: Pt is a 37 year old A homeless F with PMHx of polysubstance abuse(ETOH, tobacco, cocaine and heroine), fibromyalgias, withdrawal seizures and anxiety presenting, from [facility] with 9 weeks and requiring alcohol detox. # ETOH withdrawal CIWA-8 Has had DTs in past librium reviewed down to 25mg Q6H taper Pt anxious about does reduction Thiamine Banana bag vits Mg Phosh # UTI Positive UA in Suprapubic tenderness Cont ceftriaxone 2g # Obgyn consult- confirm her meds and discuss with obgyn, waiting to hear back monitoring vits #Heroine/ Cocaine abuse On methadone program Waiting to hear back from the clinic- [facility] does not take women [facility] takes females Contact information for Dr Curt Raymundo-[phone] Will call in the am to discuss pt care intake officer requested consent from pt prior Will likely detox pt and have her go back to [facility] for rehab #fibromayalgias Pending her med rec - waiting for response #anxiety Will be on benzos for ETOH withdrawal pending med recs #FEN iv fluids Monitor lytes and replete as needed Regular diet #Dispo Cont detox and UTI treatment Med surg Visit type - Emergency Visit Emergency Visit: Yes ED Registration Date: 07/27/17 Care time: The patient presented to the Emergency Department on the above date and was hospitalized for further evaluation of their emergent condition. - New Patient This patient is new to me today: No - Critical Care Critical Care patient: No - Discharge Referral Referred to [facility] No
[2017-07-29] MEDS ORDERED: DEXTROSE 5%-WATER 100 ML IVPB ONE (09:13)
[2017-07-29 09:45] LABS: HEMATOCRIT 32.6 % (32.4-45.2); MCH 31.5 pg (25.7-33.7); MCHC 33.7 g/dl (32.0-36.0); MEAN CELL VOLUME 93.3 fl (80-96); MEAN PLT VOLUME 10.2 fl (7.5-11.1); PLATELET COUNT 225 K/MM3 (134-434); RBC 3.49 M/mm3 (3.60-5.2); RDW 14.3 % (11.6-15.6); WHITE BLOOD COUNT 8.5 K/mm3 (4.0-10.0)
[2017-07-29] MEDS: CEFTRIAXONE 2 GM in DEXTROSE 5%-WATER 100 ML IVPB SCH (09:50)
[2017-07-29] MEDS: NICOTINE 21 MG/24 HOURS TOPICAL PATCH TD SCH (09:51)
[2017-07-29] MEDS: PRENATAL VITAMINS W/ FOLIC ACID TABLET (FP) PO SCH (09:51)
[2017-07-29] MEDS: THIAMINE HCL 100 MG TABLET (FP) PO SCH (09:51)
[2017-07-29] MEDS: METOCLOPRAMIDE HCL INJECTION 10 MG/2 ML VIAL IVPUSH PRN (11:35)
[2017-07-29 13:05] LABS: ALK PHOS 52 U/L (45-117); ANION GAP 11 (8-16); BILIRUBIN,TOTAL 0.2 mg/dL (0.2-1.0); BLOOD UREA NITROGEN 6 mg/dL (7-18); CALCIUM 8.7 mg/dL (8.5-10.1); CHLORIDE 106 mmol/L (98-107); CO2 21 mmol/L (21-32); CREATININE 0.5 mg/dL (0.55-1.02); GLUCOSE,RANDOM 106 mg/dL (74-106); PHOSPHOROUS 3.5 mg/dL (2.5-4.9); SGPT/ALT 26 U/L (12-78); SODIUM 138 mmol/L (136-145); TOT PROT 6.3 g/dl (6.4-8.2)
[2017-07-29 13:21] LABS: MAGNESIUM 1.8 mg/dL (1.8-2.4); POTASSIUM 4.2 mmol/L (3.5-5.1); SGOT/AST 30 U/L (15-37)
[2017-07-29] MEDS: chlordiazePOXIDE HCL 25 MG CAPSULE PO PRN ×2 (14:54→20:37)
--- NOTE | 2017-07-29 16:24 | PN ---
Teaching Attending Note Name of Resident: Elke Davis ATTENDING PHYSICIAN STATEMENT I saw and evaluated the patient. I reviewed the resident's note and discussed the case with the resident. I agree with the resident's findings and plan as documented with exceptions below. SUBJECTIVE: Patient seen and examined, anxious about withdrawing from alcohol. Some urinary frequency but has improved now, no fevers, chills, abdominal or back pain. OBJECTIVE: Vital Signs Period Temp Pulse Resp BP Sys/Valdez Pulse Ox Last 24 Hr 98.1 F-99 F 59-76 18-20 118-137/62-76 99-99 Intake & Output 07/26/17 07/27/17 07/28/17 07/29/17 23:59 23:59 23:59 23:59 Intake Total 1200 3320 1969 Balance 1200 3320 1969 Weight 158 lb 8 oz General:sitting in bed in no acute distress Abdomen:soft, NT throughout, ND, positive bowel sounds, no CVA tenderness Extremities: mild tremors Home Medications Medication Instructions Recorded Amitriptyline HCl [Elavil -] 50 mg PO HS 07/28/17 Cyclobenzaprine HCl [Flexeril -] 10 mg PO BID 07/28/17 Fluoxetine HCl [Prozac -] 10 mg PO DAILY 07/28/17 Gabapentin [Neurontin] 600 mg PO QID 07/28/17 Hydroxyzine HCl 50 mg PO Q6H PRN 07/28/17 Quetiapine Fumarate [Seroquel -] 25 mg PO BID 07/28/17 Valacyclovir HCl [Valtrex] 500 mg PO BID 07/28/17 Zolpidem Tartrate [Ambien] 10 mg PO HS 07/28/17 Active Medications Acetaminophen (Tylenol -) 650 mg PO Q4H PRN PRN Reason: PAIN LEVEL 1-5 Last Admin: 07/29/17 05:11 Dose: 650 mg Cephalexin HCl (Keflex -) 500 mg PO BID [facility] Stop: 08/03/17 22:01 Chlordiazepoxide HCl (Librium -) 25 mg PO Q4H PRN PRN Reason: WITHDRAWAL(CONT SUBST) Stop: 07/30/17 14:43 Last Admin: 07/29/17 14:54 Dose: 25 mg Chlordiazepoxide HCl (Librium -) 25 mg PO Q6HPO [facility] Stop: 07/30/17 06:01 Heparin Sodium (Porcine) (Heparin -) 5,000 unit SQ TID [facility] Last Admin: 07/29/17 13:54 Dose: Not Given Sodium Chloride (Normal Saline -) 1,000 mls @ 75 mls/hr IV ASDIR [facility] Last Admin: 07/29/17 13:46 Dose: 75 mls/hr Methadone HCl 120 mg/ (Methadone HCl 30 mg) 150 mg PO DAILY@0600 [facility] Last Admin: 07/29/17 05:40 Dose: 150 mg Metoclopramide HCl (Reglan Injection -) 10 mg IVPUSH Q6H PRN PRN Reason: NAUSEA AND/OR VOMITING Last Admin: 07/29/17 11:35 Dose: 10 mg Nicotine (Nicoderm Patch -) 21 mg TD DAILY [facility] Last Admin: 07/29/17 09:51 Dose: 21 mg Multivit/Folic Acid/Iron ( Vitamins (Sjr) -) 1 tab PO DAILY [facility] Last Admin: 07/29/17 09:51 Dose: 1 tab Thiamine HCl (Vitamin B1 -) 100 mg PO DAILY [facility] Last Admin: 07/29/17 09:51 Dose: 100 mg Laboratory Results - last 24 hr 07/29/17 07/29/17 09:25 09:25 WBC 8.5 RBC 3.49 L Hgb 11.0 Hct 32.6 MCV 93.3 MCH 31.5 MCHC 33.7 RDW 14.3 Plt Count 225 MPV 10.2 D Sodium 138 Potassium 4.2 Chloride 106 Carbon Dioxide 21 Anion Gap 11 BUN 6 L Creatinine 0.5 L Creat Clearance w eGFR > 60 Random Glucose 106 Calcium 8.7 Phosphorus 3.5 Magnesium 1.8 Total Bilirubin 0.2 D AST 30 ALT 26 Alkaline Phosphatase 52 Total Protein 6.3 L Albumin 3.0 L Microbiology 07/27/17 12:00 Urine - Urine Clean Catch Urine Culture - Final Strep Agalactiae Group B Lactobacillus Species ASSESSMENT AND PLAN: 37yo F wtih PMH continuous polysubstance abuse with hx of withdrawal seizures, fibromyalgia and anxiety presented to the ER after injecting cocaine for detox, sent form [place] as +9 weeks . -Acute ETOH withdrawal -+9 weeks live intrauterine gestation -Lower uncomplicated UTI -Polysubstance abuse -Fibromyalgia -Genital herpes Plan: Librium taper 25 mg q6h to over over next 1-2 days. Folate/thiamine/MVI. Detox input. Ob consult appreciated. Ceftriaxone day 3, urine cultures noted, change to keflex. Methadone 150 mg, confirmed, discuss risks with . Continue home psych meds per OB. Continue valcyclovir. heparin DVTPPx dispo in 1-2 days as improves. Plan discussed with patient in detail, all questions answered
[2017-07-29] MEDS ORDERED: chlordiazePOXIDE 5 MG CAPSULE PO SCH (17:00)
[2017-07-30] MEDS: chlordiazePOXIDE HCL 25 MG CAPSULE PO SCH ×2 (00:01→06:21)
[2017-07-30] MEDS: chlordiazePOXIDE HCL 25 MG CAPSULE PO PRN ×2 (02:49→11:13)
[2017-07-30] MEDS: SODIUM CHLORIDE 1,000 ML IV SCH ×2 (04:13→10:54)
[2017-07-30] MEDS ORDERED: METHADONE HCL 10 MG TABLET ONE (05:01)
[2017-07-30] MEDS ORDERED: METHADONE HCL 40 MG DISPERSABLE TABLET ONE (05:02)
[2017-07-30] MEDS: METHADONE 120 MG, METHADONE 30 MG PO SCH (06:19)
[2017-07-30] MEDS: HEPARIN NA (PORCINE) 5,000 UNITS/ML 1ML VIAL SQ SCH ×3 (06:21→22:20)
[2017-07-30 07:34] LABS: BASO % 0.8 % (0-2.0); EOS % 1.2 % (0-4.5); HEMATOCRIT 35.9 % (32.4-45.2); LYMPH % 26.5 % (8-40); MCH 31.5 pg (25.7-33.7); MCHC 33.5 g/dl (32.0-36.0); MEAN CELL VOLUME 93.8 fl (80-96); MEAN PLT VOLUME 8.7 fl (7.5-11.1); MONO % 6.6 % (3.8-10.2); NEUT % 64.9 % (42.8-82.8); PLATELET COUNT 269 K/MM3 (134-434); RBC 3.82 M/mm3 (3.60-5.2); RDW 14.4 % (11.6-15.6); WHITE BLOOD COUNT 8.9 K/mm3 (4.0-10.0)
[2017-07-30 08:13] LABS: CHLORIDE 104 mmol/L (98-107); POTASSIUM 4.5 mmol/L (3.5-5.1); SODIUM 138 mmol/L (136-145)
[2017-07-30 08:24] LABS: ALBUMIN 3.3 g/dl (3.4-5.0); ALK PHOS 58 U/L (45-117); ANION GAP 9 (8-16); BILIRUBIN,TOTAL 0.2 mg/dL (0.2-1.0); BLOOD UREA NITROGEN 6 mg/dL (7-18); CALCIUM 9.2 mg/dL (8.5-10.1); CO2 25 mmol/L (21-32); CREATININE 0.5 mg/dL (0.55-1.02); GLUCOSE,RANDOM 73 mg/dL (74-106); MAGNESIUM 1.9 mg/dL (1.8-2.4); PHOSPHOROUS 3.7 mg/dL (2.5-4.9); SGOT/AST 25 U/L (15-37); SGPT/ALT 28 U/L (12-78); TOT PROT 6.9 g/dl (6.4-8.2)
--- NOTE | 2017-07-30 10:31 | PN ---
[facility] Progress Note (SOAP) Subjective: We were asked to see the patient again because the pt is and in on librium detox protocol but is still feeling the effects of alcohol withdrawal. Pt states that she would like to remain on librium 50mg for a few more doses. She remains on methadone 150mg/day. She is followed by an [facility] in the [place]. Was seen for an intial intake at [facility] for detox. Pt states that she would like to stop using illicit substances and alcohol as she is . Objective: 07/30/17 10:32 VS normal. Pt is comfortably resting in bed without signs of alcohol or opioid withdrawal Assessment: 07/30/17 10:32 Pt is a 37 yo with long h/o of polysubstance use- will continue librium detox for alcohol and maintain on current methadone dosing Plan: d/w attending-Dr. montiel- will continue librium detox for alcohol withdrawal at higher dose - 50mg for the next few doses, as the pt is 9 weeks and may have a variable metabolism. Continue methadone at current dose. Pt will follow-up at usual OTP in the [place]
[2017-07-30] MEDS: THIAMINE HCL 100 MG TABLET (FP) PO SCH (10:54)
[2017-07-30] MEDS: CEPHALEXIN MONOHYDRATE 500 MG CAPSULE (UD) PO SCH ×2 (10:54→22:20)
[2017-07-30] MEDS: PRENATAL VITAMINS W/ FOLIC ACID TABLET (FP) PO SCH (10:54)
[2017-07-30] MEDS: NICOTINE 21 MG/24 HOURS TOPICAL PATCH TD SCH (10:54)
[2017-07-30] MEDS: ACETAMINOPHEN 325 MG TABLET (FP) PO PRN ×2 (11:08→20:34)
[2017-07-30] MEDS: METOCLOPRAMIDE HCL INJECTION 10 MG/2 ML VIAL IVPUSH PRN (11:09)
--- NOTE | 2017-07-30 14:42 | PN ---
Physical Exam: SUBJECTIVE: Patient seen and examined. Still c/o about being anxious and unable to sleep. She asked and received 2 doses of librium 25mg overnight. Says she still feels nauseous. No suprapubic pain. OBJECTIVE: Vital Signs Period Temp Pulse Resp BP Sys/Valdez Pulse Ox Last 24 Hr 98.4 F-99.6 F 66-72 18-20 117-162/55-62 99 Vital Signs Temp 99.6 F 07/30/17 07:20 Pulse 66 07/30/17 07:20 Resp 20 07/30/17 07:20 BP 162/56 07/30/17 07:20 Pulse Ox 99 07/29/17 21:00 Intake & Output 07/29/17 07/30/17 07/30/17 23:59 11:59 23:59 Intake Total 1870 1600 320 Balance 1870 1600 320 Intake: IV 1200 900 Normal Saline - 1,000 ml 1200 900 @ 75 mls/hr IV ASDIR [facility] Rx#:[id number] Oral 670 700 320 Other: Voiding Method Toilet Toilet # Unmeasured Voids Void 1 1 Bowel Movement Yes Yes # Bowel Movements 1 GENERAL: The patient is awake, alert, and fully oriented. Still has tremors with outstretched hands. LUNGS: Breath sounds equal, clear to auscultation bilaterally HEART: Regular rate and rhythm, S1, S2 without murmur ABDOMEN: Soft, nontender, nondistended, normoactive bowel sounds, no guarding, no rebound, no hepatosplenomegaly, no masses. EXTREMITIES: 2+ pulses, warm, well-perfused, no edema. NEUROLOGICAL: Cranial nerves II through XII grossly intact. Normal speech, normal gait- CIWA-5 Laboratory Results - last 24 hr 07/30/17 07/30/17 06:00 06:00 WBC 8.9 RBC 3.82 Hgb 12.0 Hct 35.9 MCV 93.8 MCH 31.5 MCHC 33.5 RDW 14.4 Plt Count 269 MPV 8.7 D Absolute Neuts (auto) 5.8 Neutrophils % 64.9 Lymphocytes % 26.5 Monocytes % 6.6 Eosinophils % 1.2 Basophils % 0.8 Nucleated RBC % 0 Sodium 138 Potassium 4.5 Chloride 104 Carbon Dioxide 25 Anion Gap 9 BUN 6 L Creatinine 0.5 L Creat Clearance w eGFR > 60 Random Glucose 73 L Calcium 9.2 Phosphorus 3.7 Magnesium 1.9 Total Bilirubin 0.2 AST 25 ALT 28 Alkaline Phosphatase 58 Total Protein 6.9 Albumin 3.3 L Active Medications Generic Name Dose Route Start Last Admin Trade Name Freq PRN Reason Stop Dose Admin Acetaminophen 650 mg 07/28/17 10:21 07/30/17 11:08 Tylenol - PO 650 mg Q4H PRN Administration PAIN LEVEL 1-5 Cephalexin HCl 500 mg 07/30/17 10:00 07/30/17 10:54 Keflex - PO 08/03/17 22:01 500 mg BID [facility] Administration Chlordiazepoxide HCl 25 mg 07/27/17 14:44 07/30/17 11:13 Librium - PO 07/30/17 14:43 25 mg Q4H PRN Administration WITHDRAWAL(CONT SUBST) Chlordiazepoxide HCl 10 mg 07/30/17 13:22 Librium - PO 07/31/17 05:01 [id number] [facility] Heparin Sodium (Porcine) 5,000 unit 07/27/17 14:00 07/30/17 14:26 Heparin - SQ Not Given TID [facility] Sodium Chloride 1,000 mls @ 75 mls/hr 07/29/17 10:15 07/30/17 10:54 Normal Saline - IV Not Given ASDIR [facility] Methadone HCl 120 mg/ 150 mg 07/29/17 06:00 07/30/17 06:19 Methadone HCl 30 mg PO 150 mg DAILY@0600 [facility] Administration Metoclopramide HCl 10 mg 07/27/17 15:21 07/30/17 11:09 Reglan Injection - IVPUSH 10 mg Q6H PRN Administration NAUSEA AND/OR VOMITING Nicotine 21 mg 07/27/17 15:15 07/30/17 10:54 Nicoderm Patch - TD 21 mg DAILY [facility] Administration Multivit/Folic Acid/Iron 1 tab 07/28/17 10:00 07/30/17 10:54 Vitamins (Sjr) - PO 1 tab DAILY [facility] Administration Thiamine HCl 100 mg 07/28/17 10:00 07/30/17 10:54 Vitamin B1 - PO 100 mg DAILY [facility] Administration Ambulatory Orders Amitriptyline HCl [Elavil -] 50 mg PO HS 07/28/17 Cyclobenzaprine HCl [Flexeril -] 10 mg PO BID 07/28/17 Fluoxetine HCl [Prozac -] 10 mg PO DAILY 07/28/17 Gabapentin [Neurontin] 600 mg PO QID 07/28/17 Hydroxyzine HCl 50 mg PO Q6H PRN 07/28/17 Quetiapine Fumarate [Seroquel -] 25 mg PO BID 07/28/17 Valacyclovir HCl [Valtrex] 500 mg PO BID 07/28/17 Zolpidem Tartrate [Ambien] 10 mg PO HS 07/28/17 Current Medications Acetaminophen (Tylenol -) 650 mg PO Q4H PRN PRN Reason: PAIN LEVEL 1-5 Last Admin: 07/30/17 11:08 Dose: 650 mg Cephalexin HCl (Keflex -) 500 mg PO BID [facility] Stop: 08/03/17 22:01 Last Admin: 07/30/17 10:54 Dose: 500 mg Chlordiazepoxide HCl (Librium -) 10 mg PO [id number] [facility] Stop: 07/31/17 05:01 Last Admin: 07/30/17 18:32 Dose: 10 mg Heparin Sodium (Porcine) (Heparin -) 5,000 unit SQ TID [facility] Last Admin: 07/30/17 14:26 Dose: Not Given Sodium Chloride (Normal Saline -) 1,000 mls @ 75 mls/hr IV ASDIR [facility] Last Admin: 07/30/17 10:54 Dose: Not Given Methadone HCl 120 mg/ (Methadone HCl 30 mg) 150 mg PO DAILY@0600 [facility] Last Admin: 07/30/17 06:19 Dose: 150 mg Metoclopramide HCl (Reglan Injection -) 10 mg IVPUSH Q6H PRN PRN Reason: NAUSEA AND/OR VOMITING Last Admin: 07/30/17 11:09 Dose: 10 mg Nicotine (Nicoderm Patch -) 21 mg TD DAILY [facility] Last Admin: 07/30/17 10:54 Dose: 21 mg Multivit/Folic Acid/Iron ( Vitamins (Sjr) -) 1 tab PO DAILY [facility] Last Admin: 07/30/17 10:54 Dose: 1 tab Thiamine HCl (Vitamin B1 -) 100 mg PO DAILY [facility] Last Admin: 07/30/17 10:54 Dose: 100 mg ASSESSMENT/PLAN: Pt is a 37 year old A homeless F with PMHx of polysubstance abuse(ETOH, tobacco, cocaine and heroine), fibromyalgias, withdrawal seizures and anxiety presenting, from [facility] with 9 weeks and requiring alcohol detox. # ETOH withdrawal CIWA-5 Has had DTs in past librium reviewed down to 10mg Q6H to complete tomorrow Pt anxious about does reduction Thiamine Banana bag vits Mg Phosh # UTI Positive UA in No Suprapubic tenderness Cont keflex PO 500 bid # Obgyn consult-to follow up as outpt monitoring vits #Heroine/ Cocaine abuse On methadone program-150mg Will complete detox and sent back to [place] takes females for methadone Contact information for Dr Curt Raymundo-[phone] intake officer requested consent from pt prior #fibromyalgias Pending her med rec - waiting for response #anxiety Continue on benzos for ETOH withdrawal #FEN iv fluids Monitor lytes and replete as needed Regular diet #Dispo Cont detox and UTI treatment- for likely D/C tomorrow Med surg Visit type - Emergency Visit Emergency Visit: Yes ED Registration Date: 07/27/17 Care time: The patient presented to the Emergency Department on the above date and was hospitalized for further evaluation of their emergent condition. - New Patient This patient is new to me today: No - Critical Care Critical Care patient: No - Discharge Referral Referred to [facility] Med P.C.: No
[2017-07-30] MEDS: chlordiazePOXIDE 5 MG CAPSULE PO SCH ×3 (14:43→23:08)
--- NOTE | 2017-07-30 18:35 | PN ---
Teaching Attending Note Name of Resident: Elke Davis ATTENDING PHYSICIAN STATEMENT I saw and evaluated the patient. I reviewed the resident's note and discussed the case with the resident. I agree with the resident's findings and plan as documented with exceptions below. SUBJECTIVE: Patient seen and examined. reports stress and anxiety about her . OBJECTIVE: Vital Signs Period Temp Pulse Resp BP Sys/Valdez Pulse Ox Last 24 Hr 98.6 F-99.6 F 61-81 16-20 123-162/56-73 99-99 Intake & Output 07/27/17 07/28/17 07/29/17 07/30/17 23:59 23:59 23:59 23:59 Intake Total 1200 3320 3620 2270 Balance 1200 3320 3620 2270 Weight 158 lb 8 oz General: ambulating in the hallway Chest: CTAB, no rales or wheezing abdomen: soft, NT Extremities: mild tremors Home Medications Medication Instructions Recorded Amitriptyline HCl [Elavil -] 50 mg PO HS 07/28/17 Cyclobenzaprine HCl [Flexeril -] 10 mg PO BID 07/28/17 Fluoxetine HCl [Prozac -] 10 mg PO DAILY 07/28/17 Gabapentin [Neurontin] 600 mg PO QID 07/28/17 Hydroxyzine HCl 50 mg PO Q6H PRN 07/28/17 Quetiapine Fumarate [Seroquel -] 25 mg PO BID 07/28/17 Valacyclovir HCl [Valtrex] 500 mg PO BID 07/28/17 Zolpidem Tartrate [Ambien] 10 mg PO HS 07/28/17 Active Medications Acetaminophen (Tylenol -) 650 mg PO Q4H PRN PRN Reason: PAIN LEVEL 1-5 Last Admin: 07/30/17 11:08 Dose: 650 mg Cephalexin HCl (Keflex -) 500 mg PO BID [facility] Stop: 08/03/17 22:01 Last Admin: 07/30/17 10:54 Dose: 500 mg Chlordiazepoxide HCl (Librium -) 10 mg PO [id number] [facility] Stop: 07/31/17 05:01 Last Admin: 07/30/17 18:32 Dose: 10 mg Heparin Sodium (Porcine) (Heparin -) 5,000 unit SQ TID [facility] Last Admin: 07/30/17 14:26 Dose: Not Given Sodium Chloride (Normal Saline -) 1,000 mls @ 75 mls/hr IV ASDIR [facility] Last Admin: 07/30/17 10:54 Dose: Not Given Methadone HCl 120 mg/ (Methadone HCl 30 mg) 150 mg PO DAILY@0600 [facility] Last Admin: 07/30/17 06:19 Dose: 150 mg Metoclopramide HCl (Reglan Injection -) 10 mg IVPUSH Q6H PRN PRN Reason: NAUSEA AND/OR VOMITING Last Admin: 07/30/17 11:09 Dose: 10 mg Nicotine (Nicoderm Patch -) 21 mg TD DAILY [facility] Last Admin: 07/30/17 10:54 Dose: 21 mg Multivit/Folic Acid/Iron ( Vitamins (Sjr) -) 1 tab PO DAILY [facility] Last Admin: 07/30/17 10:54 Dose: 1 tab Thiamine HCl (Vitamin B1 -) 100 mg PO DAILY [facility] Last Admin: 07/30/17 10:54 Dose: 100 mg Abnormal Lab Results 07/30/17 06:00 BUN 6 L Creatinine 0.5 L Random Glucose 73 L Albumin 3.3 L Microbiology 07/27/17 12:00 Urine - Urine Clean Catch Urine Culture - Final Strep Agalactiae Group B Lactobacillus Species ASSESSMENT AND PLAN: 37yo F wtih PMH continuous polysubstance abuse with hx of withdrawal seizures, fibromyalgia and anxiety presented to the ER after injecting cocaine for detox, sent form [facility] as +9 weeks . -Acute ETOH withdrawal -+9 weeks live intrauterine gestation -Lower uncomplicated UTI -Polysubstance abuse -Fibromyalgia -Genital herpes Plan: Librium taper 10 mg q6h to over over next 24 hours Folate/thiamine/MVI. Detox input. Ob consult appreciated. s/p 3 days of Ceftriaxone, urine cultures noted, Keflex day 1 Methadone 150 mg, confirmed, discuss risks with . Continue home psych meds per OB. Continue valcyclovir. heparin DVTPPx dispo in 1-2 days as improves. Plan discussed with patient in detail, all questions answered
[2017-07-31] MEDS ORDERED: METHADONE HCL 10 MG TABLET ONE (05:47)
[2017-07-31] MEDS ORDERED: METHADONE HCL 40 MG DISPERSABLE TABLET ONE (05:48)
[2017-07-31] MEDS: METHADONE 120 MG, METHADONE 30 MG PO SCH (05:50)
[2017-07-31] MEDS: chlordiazePOXIDE 5 MG CAPSULE PO SCH (05:50)
[2017-07-31] MEDS: HEPARIN NA (PORCINE) 5,000 UNITS/ML 1ML VIAL SQ SCH (05:52)
[2017-07-31] MEDS ORDERED: chlordiazePOXIDE 5 MG CAPSULE PO ONE (07:59)
[2017-07-31] MEDS: BACITRACIN 15 GM TUBE TOPICAL OINTMENT TP SCH ×2 (08:28→09:49)
[2017-07-31 09:36] VITALS: BP 122/71; PULSE 80; TEMP 98.1
[2017-07-31] MEDS: NICOTINE 21 MG/24 HOURS TOPICAL PATCH TD SCH (09:44)
[2017-07-31] MEDS: CEPHALEXIN MONOHYDRATE 500 MG CAPSULE (UD) PO SCH (09:44)
[2017-07-31] MEDS: THIAMINE HCL 100 MG TABLET (FP) PO SCH (09:44)
[2017-07-31] MEDS: PRENATAL VITAMINS W/ FOLIC ACID TABLET (FP) PO SCH (09:44)
--- NOTE | 2017-07-31 12:45 | PN ---
Teaching Attending Note Name of Resident: Elke Davis ATTENDING PHYSICIAN STATEMENT I saw and evaluated the patient. I reviewed the resident's note and discussed the case with the resident. I agree with the resident's findings and plan as documented with exceptions below. SUBJECTIVE: Patient seen and examined. ambulating well, no complaints. Ready to go home. OBJECTIVE: Vital Signs Period Temp Pulse Resp BP Sys/Valdez Pulse Ox Last 24 Hr 98.1 F-99.1 F 80-114 18-20 122-127/62-73 100-100 Intake & Output 07/28/17 07/29/17 07/30/17 07/31/17 23:59 23:59 23:59 23:59 Intake Total 3320 3620 2710 240 Balance 3320 3620 2710 240 General: ambulating in room, no distress Extremities: no tremors. Home Medications Medication Instructions Recorded Cephalexin [Keflex] 500 mg PO BID #11 capsule 07/31/17 Methadone [Dolophine -] 150 mg PO DAILY@0600 tablet MDD 07/31/17 150 Nicotine Patch [Nicoderm Patch -] 21 mg TD DAILY 7 Days #7 patch 07/31/17 Vitamins (Sjr) - 1 tab PO DAILY #30 tablet 07/31/17 Thiamine HCl [Vitamin B1 -] 100 mg PO DAILY #30 tablet 07/31/17 Active Medications Acetaminophen (Tylenol -) 650 mg PO Q4H PRN PRN Reason: PAIN LEVEL 1-5 Last Admin: 07/30/17 20:34 Dose: 650 mg Bacitracin (Bacitracin -) 1 applic TP BID [facility] Last Admin: 07/31/17 09:49 Dose: 1 applic Cephalexin HCl (Keflex -) 500 mg PO BID [facility] Stop: 08/03/17 22:01 Last Admin: 07/31/17 09:44 Dose: 500 mg Heparin Sodium (Porcine) (Heparin -) 5,000 unit SQ TID [facility] Last Admin: 07/31/17 05:52 Dose: 5,000 unit Sodium Chloride (Normal Saline -) 1,000 mls @ 75 mls/hr IV ASDIR [facility] Last Admin: 07/30/17 10:54 Dose: Not Given Methadone HCl 120 mg/ (Methadone HCl 30 mg) 150 mg PO DAILY@0600 [facility] Last Admin: 07/31/17 05:50 Dose: 150 mg Metoclopramide HCl (Reglan Injection -) 10 mg IVPUSH Q6H PRN PRN Reason: NAUSEA AND/OR VOMITING Last Admin: 07/30/17 11:09 Dose: 10 mg Nicotine (Nicoderm Patch -) 21 mg TD DAILY [facility] Last Admin: 07/31/17 09:44 Dose: 21 mg Multivit/Folic Acid/Iron ( Vitamins (Sjr) -) 1 tab PO DAILY [facility] Last Admin: 07/31/17 09:44 Dose: 1 tab Thiamine HCl (Vitamin B1 -) 100 mg PO DAILY [facility] Last Admin: 07/31/17 09:44 Dose: 100 mg Microbiology 07/27/17 12:00 Urine - Urine Clean Catch Urine Culture - Final Strep Agalactiae Group B Lactobacillus Species ASSESSMENT AND PLAN: 37yo F wtih PMH continuous polysubstance abuse with hx of withdrawal seizures, fibromyalgia and anxiety presented to the ER after injecting cocaine for detox, sent form [place] as +9 weeks . -Acute ETOH withdrawal -+9 weeks live intrauterine gestation -Lower uncomplicated UTI -Polysubstance abuse -Fibromyalgia -Genital herpes Plan: doing well, completed librium taper. Keflex for 10 day course. Repeat urine cultures 1 week after completion of treatment. Outpatient detox and ob follow up. Dc home today. Plan discussed with patient in detail, all questions answered
--- NOTE | 2017-07-31 16:32 | DS ---
Physical Exam: SUBJECTIVE: Patient seen and examined. Acknowledges she is improved enough to be discharged. Requesting one dose of librium prior to discharge. Tremors improved, no fevers. Said she has been researching rehab centers personally. OBJECTIVE: Vital Signs Period Temp Pulse Resp BP Sys/[place] Pulse Ox Last 24 Hr 98.1 F-99.1 F 80-114 18-20 122-127/62-73 100-100 Vital Signs Temp 98.1 F 07/31/17 09:34 Pulse 80 07/31/17 09:34 Resp 18 07/31/17 09:34 BP 122/71 07/31/17 09:34 Pulse Ox 100 07/31/17 09:00 Intake & Output 07/30/17 07/31/17 07/31/17 23:59 11:59 23:59 Intake Total 1110 240 Balance 1110 240 Intake: Oral 1110 240 Other: Voiding Method Toilet Toilet # Unmeasured Voids Void 1 Bowel Movement Yes No PHYSICAL EXAM GENERAL: The patient is awake, alert, and fully oriented, in no acute distress. HEAD: Normal with no signs of trauma. EYES: PERRL, extraocular movements intact ENT: oropharynx clear without exudates, moist mucous membranes. LUNGS: Breath sounds equal, clear to auscultation bilaterally. HEART: Regular rate and rhythm, S1, S2 without murmur. ABDOMEN: Soft, non tender suprapubic area, normoactive bowel sounds EXTREMITIES: 2+ pulses, warm, well-perfused, no edema. NEUROLOGICAL: AAOx3. No lateralizing signs. Normal speech, normal gait. Mild fine tremors on outstretched hands- CIWA-3. LABS Laboratory Last Values WBC 8.9 K/mm3 (4.0-10.0) 07/30/17 06:00 RBC 3.82 M/mm3 (3.60-5.2) 07/30/17 06:00 Hgb 12.0 GM/dL (10.7-15.3) 07/30/17 06:00 Hct 35.9 % (32.4-45.2) 07/30/17 06:00 MCV 93.8 fl (80-96) 07/30/17 06:00 MCH 31.5 pg (25.7-33.7) 07/30/17 06:00 MCHC 33.5 g/dl (32.0-36.0) 07/30/17 06:00 RDW 14.4 % (11.6-15.6) 07/30/17 06:00 Plt Count 269 K/MM3 (134-434) 07/30/17 06:00 MPV 8.7 fl (7.5-11.1) D 07/30/17 06:00 Absolute Neuts (auto) 5.8 # 07/30/17 06:00 Neutrophils % 64.9 % (42.8-82.8) 07/30/17 06:00 Lymphocytes % 26.5 % (8-40) 07/30/17 06:00 Monocytes % 6.6 % (3.8-10.2) 07/30/17 06:00 Eosinophils % 1.2 % (0-4.5) 07/30/17 06:00 Basophils % 0.8 % (0-2.0) 07/30/17 06:00 Nucleated RBC % 0 % (0-0) 07/30/17 06:00 Sodium 138 mmol/L (136-145) 07/30/17 06:00 Potassium 4.5 mmol/L (3.5-5.1) 07/30/17 06:00 Chloride 104 mmol/L (98-107) 07/30/17 06:00 Carbon Dioxide 25 mmol/L (21-32) 07/30/17 06:00 Anion Gap 9 (8-16) 07/30/17 06:00 BUN 6 mg/dL (7-18) L 07/30/17 06:00 Creatinine 0.5 mg/dL (0.55-1.02) L 07/30/17 06:00 Creat Clearance w eGFR > 60 (>60) 07/30/17 06:00 Random Glucose 73 mg/dL (74-106) L 07/30/17 06:00 Calcium 9.2 mg/dL (8.5-10.1) 07/30/17 06:00 Phosphorus 3.7 mg/dL (2.5-4.9) 07/30/17 06:00 Magnesium 1.9 mg/dL (1.8-2.4) 07/30/17 06:00 Total Bilirubin 0.2 mg/dL (0.2-1.0) 07/30/17 06:00 AST 25 U/L (15-37) 07/30/17 06:00 ALT 28 U/L (12-78) 07/30/17 06:00 Alkaline Phosphatase 58 U/L (45-117) 07/30/17 06:00 Total Protein 6.9 g/dl (6.4-8.2) 07/30/17 06:00 Albumin 3.3 g/dl (3.4-5.0) L 07/30/17 06:00 Beta HCG, Quant 12219.2 mIU/ml 07/27/17 01:52 Urine Color Allison 07/27/17 07:21 Urine Appearance Cloudy 07/27/17 07:21 Urine pH 6.0 (5.0-8.0) 07/27/17 07:21 Ur Specific [place] 1.020 (1.001-1.035) 07/27/17 07:21 Urine Protein 2+ (NEGATIVE) H 07/27/17 07:21 Urine Glucose (UA) Negative (NEGATIVE) 07/27/17 07:21 Urine Ketones Trace (NEGATIVE) H 07/27/17 07:21 Urine Blood 2+ (NEGATIVE) H 07/27/17 07:21 Urine Nitrite Negative (NEGATIVE) 07/27/17 07:21 Urine Bilirubin Negative (<2.0 mg/dL) 07/27/17 07:21 Urine Urobilinogen 4.0 e.u/dl mg/dL (0.2-1.0) H 07/27/17 07:21 Ur Leukocyte Esterase 3+ (NEGATIVE) H 07/27/17 07:21 Urine WBC (Auto) 287 /hpf (3-5) 07/27/17 07:21 Urine RBC (Auto) 14 /hpf (0-3) 07/27/17 07:21 Ur Epithelial Cells Moderate /HPF (FEW) 07/27/17 07:21 Urine Bacteria Rare /hpf (NONE SEEN) 07/27/17 07:21 Urine Mucus Few 07/27/17 07:21 Opiates Screen Negative ng/ml (ELTBHY=708) 07/27/17 12:00 Methadone Screen Positive ng/ml (XPMMPX=266) 07/27/17 12:00 Barbiturate Screen Negative ng/ml (LNIPCV=583) 07/27/17 12:00 Phencyclidine Screen Negative ng/ml (CUTOFF=25) 07/27/17 12:00 Ur Amphetamines Screen Negative ng/ml (CAIAAI=979) 07/27/17 12:00 MDMA (Ecstasy) Screen Negative ng/ml (VINAGN=520) 07/27/17 12:00 Benzodiazepines Screen Positive ng/ml (ZAKWGJ=081) 07/27/17 12:00 Cocaine Screen Positive ng/ml (OPKERS=389) 07/27/17 12:00 U Marijuana (THC) Screen Negative ng/ml (CUTOFF=50) 07/27/17 12:00 Alcohol, Quantitative 110.38 mg/dL (0.0-5.0) H* 07/27/17 01:52 Microbiology 07/27/17 12:00 Urine - Urine Clean Catch Urine Culture - Final Strep Agalactiae Group B Lactobacillus Species HOSPITAL COURSE: Date of Admission:07/27/17 Date of Discharge: 07/31/17 Pt is a 37 year old A (3 miscarriages, 1 , 1 term and alive-7year old F) homeless F with PMHx of polysubstance abuse(ETOH, tobacco, cocaine and heroine), fibromyalgias, withdrawal seizures and anxiety presenting, from [facility] with 9 weeks and requiring alcohol detox. She continued on 150mg of methadone which was confirmed from the [facility] in the [place]. She was put on librium taper, thiamine and vitamins with improvement in her CIWA scores from about 15>>10>>8 and then 3. She was cognitively intact throughout the hospitalization and she did not have seizures. She was treated for UTI which on culture grew pansensitive strep agalactiae initially with ceftriaxone, to continue keflex 500mg bid for 10. She was seen by repairer art objects and asked to follow up as an outpatient. She worked with social works to identify a rehab center that could take her since she is 9 weeks . Minutes to complete discharge: 35 Discharge Summary Reason For Visit: POLYSUBSTANCE ABUSE/ TEST POSITIVE Condition: Stable - Instructions Diet, Activity, Other Instructions: You came in with symptoms of withdrawal from alcohol We put you on the librium taper that you have completed You were also a current smoker We are discharging you on the nicotine patch You were following a methadone clinic where you were receiving 150mg daily of methadone Continue to follow [facility] for your [facility]one We also noted you to be with a urinary tract infection We gave intravenous antibiotics and are continuing you on oral antibiotics- Tabs keflex 500mg twice a day until 08/05 Please take the medication as prescribed See your primary care physician to get a repeat urine culture 1 week after completion of the antibiotics- (08/12/17) If the urine test is positive, you may need to be retreated for the infection Please be sure to follow up with OB for the Please seek help for your addiction, you could try [facility] again, or [facility] or any of the other rehab centers you have looked up If you think your symptoms are not getting better, with seizures, increasing tremors or other signs of withdrawal, please return to the nearest emergency room Referrals: Page Parada MD [Staff Physician] - 1 Week Disposition: HOME - Home Medications Comprehensive Discharge Medication List: Ambulatory Orders Cephalexin [Keflex] 500 mg PO BID #11 capsule 07/31/17 Methadone [Dolophine -] 150 mg PO DAILY@0600 tablet MDD 150 07/31/17 Nicotine Patch [Nicoderm Patch -] 21 mg TD DAILY 7 Days #7 patch 07/31/17 Vitamins (Sjr) - 1 tab PO DAILY #30 tablet 07/31/17 Thiamine HCl [Vitamin B1 -] 100 mg PO DAILY #30 tablet 07/31/17 This patient is new to me today: No Emergency Visit: Yes ED Registration Date: 07/27/17 Care time: The patient presented to the Emergency Department on the above date and was hospitalized for further evaluation of their emergent condition. Critical Care patient: No - Discharge Referral Referred to [facility] No
== END 2017-07-31 14:29 | disposition home or self-care (01) | DRG 566 ==
LOC: JER 00:12 → JERBED 04:26 → UNDOADMOB 04:34 → JERBED 04:34 → OBSVTOIN 12:54 → J8W 13:47
PROVIDERS: ADMIT Internal Medicine; ATTEND Hospitalist
PROC: HZ2ZZZZ Detoxification Services for Substance Abuse Treatment (ICD-10-PCS; principal; 2017-07-27)
DX: O99.321 Drug use complicating pregnancy, first trimester (principal); O99.311 Alcohol use complicating pregnancy, first trimester; O99.341 Other mental disorders complicating pregnancy, first trimester; F41.8 Other specified anxiety disorders; O23.41 Unspecified infection of urinary tract in pregnancy, first trimester; O26.891 Other specified pregnancy related conditions, first trimester; M79.7 Fibromyalgia; F10.239 Alcohol dependence with withdrawal, unspecified; O98.511 Other viral diseases complicating pregnancy, first trimester; F17.210 Nicotine dependence, cigarettes, uncomplicated; F11.20 Opioid dependence, uncomplicated; F14.10 Cocaine abuse, uncomplicated; A60.04 Herpesviral vulvovaginitis
CPT/HCPCS: 36415; 76801-TC; 80053; 80307; 81003; 81015; 83735; 84100; 84702; 85025; 85027; 87077; 87086; 87186; 99282-25; G0378; J1644; J7030